=== PATIENT | male | born 1955 | race African-American/Black ===

== ENCOUNTER 2016-08-23 11:00 | Inpatient (IN) ==
[2016-08-23] MEDS ORDERED: SODIUM CHLORIDE 0.9% 1,000 ML IV STA (11:22)
[2016-08-23] MEDS ORDERED: ONDANSETRON 4 MG/2 ML VIAL IV STA (11:22)
[2016-08-23] MEDS ORDERED: ONDANSETRON 4 MG/2 ML VIAL ONE (11:30)
--- NOTE | 2016-08-23 11:35 | Emergency Department Note ---
Lyle Kim Brooke, am scribing for, and in the presence of, Prosper Persaud MD 11:25 . Cori Kim James D, MD, personally performed the services described in this documentation, ascribed by Kaykay Alvarenga in my presence, and it is both accurate and complete . Arrival - Arrival Chief Complaint: Weakness Stated Complaint: no eating or drinking 4-5 days,vomiting,speech ED Nursing Triage Note: Pt c/o neck/back pain, nausea, vomiting, weakness and not eating since last Mon. 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 Mode of Arrival: Ambulatory Limitations: No Limitations Source: Patient, Family (Sister in law), RN Notes Reviewed Time Seen by Provider: 08/23/16 11:16 - History of Present Illness HPI Narrative: Patient is a 61 year old male who presents to the ED with c/o not being able to eat. He says he has not had anything to eat since Monday. He denies having problems swallowing. He says he has never had problems eating in the past. Patient says his bowel movements are not regular. His last bowel movement was yesterday and he says it was "very little." Patient also says he is voiding "very little." He also complains of cough, nausea, vomiting, and shortness of breath. He says his cough is productive with white mucous. He denies any blood in his mucous or stool. Patient says he has lost a lot of weight. He says he thinks he has lost about 30 pounds. Patient has PMHx of HTN. He is a smoker and says he has been smoking, about a pack of cigarettes a day, for the past 30 years. Onset (ago): day(s) (6) Allergies/Adverse Reactions: Allergies Allergy/AdvReac Type Severity Reaction Status Date / Time No Known Allergies Allergy Verified 08/23/16 11:05 Home Medications: Home Medications Medication Instructions Recorded Confirmed Type Brimonidine Tartrate [Brimonidine 1 drop LEFT EYE BID 08/23/16 08/23/16 History 0.2% Oph Soln] Cyproheptadine Tab [Periactin Tab] 4 mg PO TID 08/23/16 08/23/16 History Difluprednate 0.05% Oph Emul 1 drop RIGHT EYE BID 08/23/16 08/23/16 History [Durezol] Dorzolamide HCl/Timolol Maleat 1 drop LEFT EYE BID 08/23/16 08/23/16 History [Dorzolamide/Timolol Oph Soln] Latanoprost [Latanoprost 0.005 % 1 drop BOTH EYES BEDTIME 08/23/16 08/23/16 History Oph Soln] Lisinopril 20 mg PO DAILY 08/23/16 08/23/16 History Meloxicam 15 mg PO DAILY 08/23/16 08/23/16 History Tramadol HCl [Tramadol Tab] 50 mg PO Q6H PRN 08/23/16 08/23/16 History amLODIPine [Norvasc] 5 mg PO DAILY 08/23/16 08/23/16 History Review of System - Review of System 12 point system: reviewed and no additional remarkable complaints except as stated - Review of System Constitutional: Present: weight loss (about 30 pounds), other (not eating). Absent: fever Respiratory: Present: cough (productive with white mucous). Absent: respiratory distress Gastrointestinal: Present: nausea, vomiting, constipation. Absent: hematochezia Skin: Absent: rash Medical,Surgical,& Family Hx - Medical History Cardio: History of: Hypertension - Surgical History Abdominal Surgeries: Surgical HX of: Hernia Repair - Social History Smoking Status: Current every day smoker Exam Vital Signs: Vital Signs Temperature 97.6 F 08/23/16 11:03 Respiratory Rate 20 08/23/16 11:03 Blood Pressure 70/43 08/23/16 11:03 GENERAL: This is a cachectic black male in no apparent distress. VITAL SIGNS: Reviewed HEENT: Head is atraumatic and normocephalic. Pupils are equal round react to light. Extraocular movements are intact. Oropharynx is benign with moist mucous membranes. NECK: Neck is soft and supple without tenderness. There are no masses. There is no lymphadenopathy. LUNGS: Lungs are clear to auscultation. Chest rises symmetrically. There is no chest wall tenderness. CV: Heart is regular rate and rhythm without murmurs rubs or gallops. ABDOMEN: Abdomen is soft, nontender to palpation. There are no abdominal abnormal masses palpated. There is no organomegaly. Bowel sounds are present and active. SKIN: Skin is warm and dry. No rash. EXTREMITIES: Patient has full range of motion without tenderness. There is no pedal edema. NEUROLOGIC: Awake, alert, oriented 4. Cranial nerves II through XII are grossly intact. Motor is 5 over 5 in all extremities bilaterally. Results - Labs CBC & BMP: 08/23/16 11:51 08/23/16 11:51 Lab Results: I have reviewed the patients labs Labs: Laboratory Tests 08/23/16 08/23/16 11:51 11:51 WBC 7.5 Hgb 14.8 Hct 40.1 L Plt Count 116 L Sodium 125 L Potassium 4.5 Chloride 82 L Carbon Dioxide 20 L Anion Gap 27.5 H BUN 97 H Creatinine 11.50 H Total Bilirubin 1.40 H AST 72 H - Diagnostic Findings Procedure: Chest x-ray: image reviewed by me (Hyperinflation bilaterally) Disposition Clinical Impression: Cachexia, Hyponatremia, Acute renal failure Case discussed with: patient Disposition: Still a Patient Condition: Stable Time of Disposition: 12:57
[2016-08-23 12:14] LABS: Basophils % 0.1 % (0.0-0.8); Eosinophils % 0.1 % (0.00-10.9); Hematocrit 40.1 VOL% (42.0-52.0); Hemoglobin 14.8 GM/DL (14.0-18.0); Immature Granulocytes % 0.4 %; Immature Granulocytes Absolute 0.03 #; Lymphocytes # 1.6 10*3/uL (1.4-4.0); Lymphocytes % 21.5 % (21.2-54.2); Mean Corpuscular HGB Conc 36.9 GM/DL (32-36); Mean Corpuscular Hemoglobin 34 PG (27-34); Mean Corpuscular Volume 91.6 FL (87-102); Mean Platelet Volume 10.5 FL (9.6-12.0); Monocytes # 0.9 10*3/uL (0.11-0.8); Monocytes % 11.9 % (1.7-12.7); Neutrophils # 4.9 10*3/uL (1.4-7.4); Platelet Count 116 T/CUMM (130-400); Red Blood Count 4.38 MC/CUMM (3.8-5.5); Red Cell Distribution Width 13.8 % (9.3-17.3); White Blood Count 7.5 T/CUMM (4-12)
--- NOTE | 2016-08-23 12:25 | XRay Report ---
Exam: XR chest 1V Date: 08/23/2016 11:22 AM Indication: Weight loss tobacco abuse cough Comparison: None Technical: AP view Findings: Mild dextroscoliotic curve at thoracolumbar junction. ASVD is present. No obvious infiltrate or effusion. Mediastinum is intact. The bony structures are otherwise unremarkable. Impression: 1. Mild dextroscoliosis thoracolumbar junction 2. ASVD 3. No acute cardiopulmonary pathology PROCEDURE INTERPRETED AT [facility] DEPARTMENT OF RADIOLOGY Final Report Signed by: Dr. Adrien Weiss
[2016-08-23 12:36] LABS: Albumin 3.5 G/DL (3.4-5.0); Bilirubin,Total 1.4 MG/DL (0.2-1.0); Calcium 9.2 MG/DL (8.5-10.1); Osmolality,Calculated 280.5 MOS/KG (273-304); Potassium 4.5 MMOL/L (3.5-5.1)
--- NOTE | 2016-08-23 12:46 | CT Report ---
Referring physician: Prosper Persaud Exam: CT brain without contrast Date: 08/23/2016 Comparison: 02/08/2008 Reason: Weakness, cachexia, weight loss, cigarette smoker Technique: Axial images of the head were obtained without the use of contrast. Total DLP was 997.90 mGy*cm. Findings: No hydrocephalus or midline shift is present. There is no evidence of an acute infarction, recent intracranial hemorrhage or abnormal mass effect. Progressive atrophy and cerebral hypodensities. The osseous structures appear intact. The mastoid air cells are clear. Minimal mucosal thickening in the left maxillary sinus with postoperative findings in the right glenoid. Impression: No acute intracranial abnormality is identified. Progressive atrophy/microvascular disease. Minimal left maxillary sinusitis. The CT exam was performed using one or more of the following dose reduction techniques: Automated exposure control and adjustment of the mA and/or kV according to patient size. PROCEDURE INTERPRETED AT [facility] DEPARTMENT OF RADIOLOGY Final Report Signed by: Dr. Pippa Baig
--- NOTE | 2016-08-23 12:53 | CT Report ---
Referring physician: Prosper Persaud EXAM: CT chest without contrast DATE: COMPARISON: 12/09/2011 REASON: Cachexia, weight loss, cigarette smoking TECHNIQUE: Axial images of the chest were obtained without the use of IV contrast. Coronal and sagittal reformatted images were also provided. Total DLP is 104.00 mGy*cm. FINDINGS: The heart is small and compressed by the over expanded lungs with arterial calcifications including coronary artery calcifications. Limited evaluation of the vasculature and nodes without contrast. No significant change in the size of the nodes in the chest. Dextroscoliosis of the lower thoracic spine with degenerative changes. Progressive paraseptal emphysema with chronic scarring at the lung apices. Minimal atelectasis. No mass or pleural effusion. IMPRESSION: Progressive bullous emphysema. Arterial calcifications including coronary artery calcifications. Dextroscoliosis of the lower thoracic spine with degenerative changes. The CT exam was performed using one or more of the following dose reduction techniques: Automated exposure control and adjustment of the mA and/or kV according to patient size. PROCEDURE INTERPRETED AT [facility] DEPARTMENT OF RADIOLOGY Final Report Signed by: Dr. Pippa Baig
--- NOTE | 2016-08-23 15:00 | Hospitalist History & Physical ---
Assessment and Plan (1) Hypochloremia Status: Acute Assessment and plan: Chloride 82 at the time of admission; this is likely secondary to volume depletion; will re-hydrate and recheck in AM. Current Visit: Yes (2) Nicotine addiction Status: Acute Assessment and plan: Reports daily smoking with no desire to stop; spoke in great detail the need to refrain from smoking. Patient acknowledges the need to stop; however is not interested. Nicotine patch offered. Current Visit: Yes (3) Hyponatremia Status: Acute Assessment and plan: Sodium noted at 125; we will correct. We will hydrate and recheck in AM. Current Visit: Yes (4) Alcohol abuse Status: Acute Assessment and plan: Patient reluctlantly reports the daily use of alcohol use; we will start withdrawal precautions and vitamin supplements. Current Visit: Yes History of Present Illness Chief complaint: weight loss/generalized weakness History of present illness: This is a very unfortunate 61 year old male that presented to the ED at [facility] for evaluation of a decrease in appetite and inability to eat since Monday. The patient has a very impressive history of hypertension, alcohol abuse, nicotine addition, and glaucoma. He reports the onset of this on last Monday along with changes in his bowel patterns. In addition, he reported an excessive productive cough, nausea, vomiting, and shortness of breath. He reports that he is a current 1 pack a day smoker for the last 30 years and reports an estimated weight loss of "about 30 pounds" over the past couple of months. Labs were obtained which showed hyponatremia with a sodium of 125, mild hepatic impairment with AST at 72 and total bilirubin at 1.40. He was noted to have renal impairment with his BUN at 97 and creatinine at 11.5. Chest radiograph suggested hyperinflation. CT head was essentially negative. After brief discussion with both Dr. Persaud and Dr. Garcia, the patient will be admitted to the hospitalist service for continuation of care. Home Medications Medication Instructions Recorded Confirmed Type Brimonidine Tartrate [Brimonidine 1 drop LEFT EYE BID 08/23/16 08/23/16 History 0.2% Oph Soln] Cyproheptadine Tab [Periactin Tab] 4 mg PO TID 08/23/16 08/23/16 History Difluprednate 0.05% Oph Emul 1 drop RIGHT EYE BID 08/23/16 08/23/16 History [Durezol] Dorzolamide HCl/Timolol Maleat 1 drop LEFT EYE BID 08/23/16 08/23/16 History [Dorzolamide/Timolol Oph Soln] Latanoprost [Latanoprost 0.005 % 1 drop BOTH EYES BEDTIME 08/23/16 08/23/16 History Oph Soln] Lisinopril 20 mg PO DAILY 08/23/16 08/23/16 History Meloxicam 15 mg PO DAILY 08/23/16 08/23/16 History Tramadol HCl [Tramadol Tab] 50 mg PO Q6H PRN 08/23/16 08/23/16 History amLODIPine [Norvasc] 5 mg PO DAILY 08/23/16 08/23/16 History Allergies Allergy/AdvReac Type Severity Reaction Status Date / Time No Known Allergies Allergy Verified 08/23/16 11:05 Medical,Surgical,& Family Hx - Medical History Cardio: History of: Hypertension - Surgical History Abdominal Surgeries: Surgical HX of: Hernia Repair - Social History Smoking Status: Current every day smoker Have you smoked in the last 12 months: Yes Time spent discussing smoking cessation with patient: more than 10 minutes Frequency of Alcohol Use: None Type of Drug Use: None Marital Status: Lives With:: Spouse Functional capacity: independent ambulation 12 point system: reviewed and no additional remarkable complaints except as stated Exam - Constitutional Vitals: Period Temp Pulse Resp BP Sys/Benites Pulse Ox Last 24 Hr 97.6 F 20 70/43 General appearance: normal weight, no acute distress - Head Head exam: Present: normal inspection, normocephalic, atraumatic - Eye Eye exam: Present: EOMI. Absent: conjunctival injection, nystagmus Pupils: Present: AMANUEL, normal accommodation - ENT ENT exam: Present: normal exam, normal external ear exam, normal oropharynx - Neck Neck exam: Present: normal inspection. Absent: lymphadenopathy, meningismus, tenderness, thyromegaly - Respiratory Respiratory exam: Present: clear to auscultation bilaterally. Absent: rales, rhonchi, stridor, wheezes - Cardiovascular Cardiovascular exam: Present: regular rate and rhythm. Absent: carotid bruit, diastolic murmur, gallop, JVD, rubs, systolic murmur - GI/Abdominal GI/Abdominal exam: Present: normal bowel sounds, soft - Extremities Exam Extremities exam: Present: normal inspection, normal capillary refill, full ROM , edema - Back Exam Back exam: Present: normal inspection - Neurological Exam Neurological exam: Present: alert, oriented X3, CN II-XII intact - Psychiatric Psychiatric exam: Present: flat affect - Skin Skin exam: Present: normal color, warm, dry Results - Labs CBC & BMP: 08/23/16 11:51 08/23/16 11:51 Lab Results: I have reviewed the past 24 hour labs Quality Measures - VTE Deep Vein Thrombosis/Pulmonary Embolism Present on Admission: No
[2016-08-23] MEDS ORDERED: cefTRIAXone 1,000 MG VIAL ONE (16:47)
[2016-08-23] MEDS ORDERED: KETOROLAC 30 MG/1 ML VIAL ONE (16:47)
[2016-08-23] MEDS ORDERED: ONDANSETRON 4 MG/2 ML VIAL IV PRN (18:05)
[2016-08-23] MEDS ORDERED: ACETAMINOPHEN 325 MG TABLET PO PRN (18:05)
[2016-08-23] MEDS ORDERED: traMADol 50 MG TABLET PO PRN (18:05)
--- NOTE | 2016-08-23 19:12 | Ultrasound Report ---
Renal ultrasound Indication: Renal failure Comparison: None available Findings: Kidneys are normal in size and echogenicity. No hydronephrosis or nephrolithiasis is seen. Small amount of right perinephric fluid is present. The right renal length is 10.9 cm. The left renal length is 9.4 cm. No free fluid or other abnormality is seen. Impression: Small amount of right perinephric fluid is present. No other evidence of abnormality demonstrated. Ultrasound images stored and captured. PROCEDURE INTERPRETED AT [facility] DEPARTMENT OF RADIOLOGY Final Report Signed by: Dr. Ezequiel Carrington
[2016-08-23] MEDS: SODIUM CHLORIDE 0.9% 1,000 ML IV SCH (19:27)
[2016-08-23] MEDS: LATANOPROST 0.005% OPH SOLN 2.5 ML BOTTLE BOTH EYES SCH (21:18)
[2016-08-23] MEDS: CYPROHEPTADINE 4 MG TABLET PO SCH (21:18)
[2016-08-23] MEDS: DORZOLAMIDE/TIMOLOL OPH SOLN 10 ML BOTTLE LEFT EYE SCH (21:18)
[2016-08-23] MEDS: BRIMONIDINE 0.2% OPH SOLN 5 ML BOTTLE LEFT EYE SCH (21:18)
[2016-08-23] MEDS: ENOXAPARIN 30 MG/0.3 ML SYRINGE SUBCUT SCH (21:18)
[2016-08-23] MEDS: DIFLUPREDNATE 0.05% OPH EMUL 5 ML BOTTLE RIGHT EYE SCH (21:18)
[2016-08-24] MEDS: SODIUM CHLORIDE 0.9% 1,000 ML IV SCH ×2 (02:42→12:50)
[2016-08-24 06:06] LABS: Apearance,Urine CLEAR (Clear); Bilirubin,Urine Negative (Negative); Blood, Urine Small mg/dL (Negative); Glucose,Urine (UA) Negative (Negative); Ketones,Urine 5 mg/dL (Negative); Nitrite,Urine Negative (Negative); Protein,Urine Negative; RBC,Urine 2 /HPF (0-4); Urine Color Yellow (Yellow); Urine Specific Gravity 1.011 (1.001-1.035); Urine Urobilinogen < 2.0 EU/DL (0.2-1.0); WBC,Urine 6 /HPF (0-6)
[2016-08-24 06:21] LABS: Basophils % 0.2 % (0.0-0.8); Eosinophils % 0.5 % (0.00-10.9); Hematocrit 34.3 VOL% (42.0-52.0); Immature Granulocytes % 0.2 %; Immature Granulocytes Absolute 0.01 #; Lymphocytes # 1.5 10*3/uL (1.4-4.0); Lymphocytes % 35.2 % (21.2-54.2); Mean Corpuscular Hemoglobin 35 PG (27-34); Mean Corpuscular Volume 93.2 FL (87-102); Mean Platelet Volume 10.3 FL (9.6-12.0); Monocytes # 0.7 10*3/uL (0.11-0.8); Monocytes % 14.9 % (1.7-12.7); Neutrophils # 2.1 10*3/uL (1.4-7.4); Platelet Count 130 T/CUMM (130-400); Red Blood Count 3.68 MC/CUMM (3.8-5.5); Red Cell Distribution Width 13.8 % (9.3-17.3)
[2016-08-24 06:23] LABS: Hemoglobin 12.7 GM/DL (14.0-18.0); White Blood Count 4.4 T/CUMM (4-12)
[2016-08-24 06:32] LABS: Calcium 8.5 MG/DL (8.5-10.1); Osmolality,Calculated 294.2 MOS/KG (273-304); Potassium 4.1 MMOL/L (3.5-5.1)
[2016-08-24 06:40] LABS: Carcinoembryonic Antigen 0.7 NG/ML (0.0-5.0)
[2016-08-24] MEDS ORDERED: amLODIPine 5 MG TABLET PO SCH (09:00)
[2016-08-24] MEDS: DIFLUPREDNATE 0.05% OPH EMUL 5 ML BOTTLE RIGHT EYE SCH ×2 (09:37→21:11)
[2016-08-24] MEDS: CYPROHEPTADINE 4 MG TABLET PO SCH ×3 (09:37→21:07)
[2016-08-24] MEDS: DORZOLAMIDE/TIMOLOL OPH SOLN 10 ML BOTTLE LEFT EYE SCH ×2 (09:37→21:11)
[2016-08-24] MEDS: BRIMONIDINE 0.2% OPH SOLN 5 ML BOTTLE LEFT EYE SCH ×2 (09:37→21:11)
[2016-08-24] MEDS: PANTOPRAZOLE 40 MG TABLET PO SCH (09:37)
--- NOTE | 2016-08-24 11:17 | Hospitalist Progress Note ---
Assessment and Plan (1) Cachexia Status: Acute Assessment and plan: The patient is admitted to the hospital with weight loss and acute renal failure. The renal failure appears to be multifactorial. The patient has apparent benign prostatic hypertrophy with lower tract obstructive symptoms. Renae catheter has been placed for drainage and creatinine has improved from 12- 6 overnight. The patient has been taking high dose meloxicam for at least a year. This has been discontinued. The patient has been taking Prinivil for hypertension and this has been discontinued. We will recheck renal function tomorrow and continue hydration with normal saline. The patient had CT scan consistent with emphysema due to tobacco abuse but there is no evidence of tumor seen. The patient does have abnormal phonation quality to his voice. I am going to consult Dr. Agee and request upper airway inspection. The patient has history of daily cigarette smoking and alcohol consumption which puts him at elevated risk of upper airway tumor. Of note, the CEA, CA 125, and PSA are within normal limits. Current Visit: Yes (2) BPH loc w urin obs/LUTS Status: Acute Current Visit: Yes (3) Acute renal failure Status: Acute Current Visit: Yes (4) Nicotine addiction Status: Acute Current Visit: Yes (5) Alcohol abuse Status: Acute Current Visit: Yes Hospitalist: Subjective Interval history: The patient looks stronger today. He has been rehydrated overnight. The patient states that he has had difficulty urinating and small urinary volumes for about a year. This is consistent with prostatism. The patient has no tremulousness or evidence of alcohol withdrawal syndrome at present. The patient does not complain of cough or dyspnea. Exam - Constitutional Vitals: Period Temp Pulse Resp BP Sys/Benites Pulse Ox Last 24 Hr 97.5 F-98.2 F 73-95 18-20 70-122/42-67 96-100 Exam: Constitutional System: No distress. The patient has obvious protein calorie malnutrition which is moderate to severe. No tremulousness. Head: Normocephalic, atraumatic. There is bitemporal wasting Ears, Nose and Throat System: No evidence of Otitis or Mastoiditis. No epistaxis or discharge Eyes System: Pupils equal, round, and reactive. Extraocular muscles intact. Neck: Supple, without adenopathy, No jugular venous distention. No thyromegaly , neck mass, or prior surgery apparent. Respiratory System: Chest clear to auscultation. The patient has some hyper expansion of the chest. The voice has abnormal phonation Cardiovascular System: Heart with regular rate and rhythm. No murmur. GI System: Abdomen soft, nontender. Normo active bowel sounds present. Musculoskeletal System: limbs with no pedal edema. Full distal pulses. There is muscular wasting Neurological System: No discernable sensory deficit. No aphasia Psychiatric System: Conversation is rational Results - Labs CBC & BMP: 08/24/16 05:38 08/24/16 05:38 Lab Results: I have reviewed the past 24 hour labs Quality Measures - VTE Deep Vein Thrombosis/Pulmonary Embolism Present on Admission: No
--- NOTE | 2016-08-24 13:13 | Nephrology Consult Note ---
History of Present Illness Chief complaint: Increased BUN and creatinine History of present illness: Mr. Salvador is a 61 year old male who is admitted yesterday for feeling weak. The patient states for the past 3 weeks or so he is not been eating well. He states he has been drinking a lot of alcohol. The patient drinks about 1/2 gallon of red wine every day. The patient has also noticed some decreased urine output during this three-week period. The patient also complained of some back pain. He has also had some knee pain and recently saw a bone doctor and was started on some pain medication for this. Based on his outpatient medications this medicine may have been meloxicam. The patient also states he restarted taking Advil recently. The patient also takes lisinopril for his blood pressure medication. He states he has been taking this on a daily basis since he has been sick. On admission the patient's creatinine was noted to be 11 mg/dL. The patient's creatinine within 24 hours has improved to 6 mg/dL. The patient had a Renae catheter placed this morning looks like he had about 325 cc of urine output with this placement. Prior to this the patient had had about 400 cc of urine output spontaneously on admission. The patient's creatinine in 2014 was noted to be normal at 0.8 mg/dL. ROS: Head -positive headaches ENT -positive sore throat Lymphatics - denies lymphadenopathy Hematology - denies bleeding problems Heart - denies chest pain Lungs - denies shortness of breath Abdomen - denies abdominal pain Musculoskeletal -positive arthritis Skin - denies rash Neurology - denies stroke, he states he has had a seizure before General -positive fever PE: General: in no acute distress, chronically ill-appearing with some muscle wasting Eyes: Pupils are round and reactive, conjunctivae are clear ENT: Nose is clear, O/P is benign Neck: Supple, no thyromegaly Lymphatics: No cervical, supraclavicular or axillary adenopathy Heart: Regular rate and rhythm, no edema Lungs: Clear to auscultation anteriorly, chest expansion symmetric Abdomen: Soft, normoactive bowel sounds, no hepatomegaly Musculoskeletal: No joint erythema or effusions or joint asymmetry Skin: Normal turgor, normal hydration, no rash Neuro/Psych: Alert and cooperative with poor insight Home Medications Medication Instructions Recorded Confirmed Type Brimonidine Tartrate [Brimonidine 1 drop LEFT EYE BID 08/23/16 08/23/16 History 0.2% Oph Soln] Cyproheptadine Tab [Periactin Tab] 4 mg PO TID 08/23/16 08/23/16 History Difluprednate 0.05% Oph Emul 1 drop RIGHT EYE BID 08/23/16 08/23/16 History [Durezol] Dorzolamide HCl/Timolol Maleat 1 drop LEFT EYE BID 08/23/16 08/23/16 History [Dorzolamide/Timolol Oph Soln] Latanoprost [Latanoprost 0.005 % 1 drop BOTH EYES BEDTIME 08/23/16 08/23/16 History Oph Soln] Lisinopril 20 mg PO DAILY 08/23/16 08/23/16 History Meloxicam 15 mg PO DAILY 08/23/16 08/23/16 History Tramadol HCl [Tramadol Tab] 50 mg PO Q6H PRN 08/23/16 08/23/16 History amLODIPine [Norvasc] 5 mg PO DAILY 08/23/16 08/23/16 History Allergies Allergy/AdvReac Type Severity Reaction Status Date / Time No Known Allergies Allergy Verified 08/23/16 11:05 Medical,Surgical,& Family Hx - Medical History Cardio: History of: Hypertension - Surgical History Abdominal Surgeries: Surgical HX of: Hernia Repair - Family History Family History: Reports;: Family Hypertension - Social History Smoking Status: Current every day smoker Frequency of Alcohol Use: Frequently (Drinks half a gallon of red wine on a daily basis) Type of Drug Use: None Exam - Vital Signs Vital signs: Period Temp Pulse Resp BP Sys/Benites Pulse Ox Last 24 Hr 97.5 F-98.2 F 73-95 18-20 70-122/42-67 96-100 Results - Labs CBC & BMP: 08/24/16 05:38 08/24/16 05:38 Assessment and Plan (1) Acute renal failure Status: Acute Assessment and plan: This patient had a normal creatinine about 2 years ago he presented with a creatinine of 11 mg/dL, it improved to 6 mg/dL with IV fluid hydration, the patient apparently had not been eating very well and drinking on a daily basis, in addition the patient was on an BENJIE inhibitor and also taking nonsteroidal anti-inflammatory medication on a daily basis. I suspect he has some prerenal injury as well as some acute tubular necrosis injury. We will continue IV fluids and monitor for improvement. It would seem most of his improvement from yesterday was prior to his Renae catheter placement however he did have a fair amount of urine returned at 300 cc with his Renae catheterization. His renal ultrasound was unremarkable Current Visit: Yes (2) Alcohol abuse Status: Acute Current Visit: Yes (3) Cachexia Status: Acute Current Visit: Yes (4) Hyponatremia Status: Acute Assessment and plan: This is correcting at an acceptable rate will continue the normal saline Current Visit: Yes (5) Nicotine addiction Status: Acute Current Visit: Yes (6) Anemia Status: Acute Assessment and plan: This is mild his hematocrit is 34% today Current Visit: Yes (7) Hypertension Status: Acute Assessment and plan: Patient's blood pressure is controlled off of antihypertensives presently Current Visit: Yes
[2016-08-24] MEDS ORDERED: THIAMINE IV SCH (15:00)
[2016-08-24] MEDS ORDERED: NACL 0.9% IV SCH (15:00)
[2016-08-24] MEDS ORDERED: DEXTROSE IV SCH (15:00)
[2016-08-24] MEDS ORDERED: MULTIVITAMIN IV SCH (15:00)
--- NOTE | 2016-08-24 15:27 | Consultation ---
Assessment and Plan - Time spent with patient Time spent with patient: Less than 30 minutes Time spent discussing smoking cessation with patient: 3 to 10 minutes (1) Dysphasia Status: Acute Assessment and plan: I see no discernible mass or lesion that would explain the underlying etiology of his weight loss I do recommend he follow-up with me as an outpatient after discharge for evaluation in the office. I did discuss with him that he needs to quit smoking additionally he needs to see dental because his poor oral hygiene is not helping his ability to eat and swallow. Additionally speech therapy for swallow evaluation and possible swallow therapy may be of benefit. Thank you very much for this consult I will see the patient in follow-up as an outpatient Current Visit: Yes (2) Dysphonia Status: Acute Current Visit: Yes (3) Dental caries Status: Acute Current Visit: Yes (4) Poor oral hygiene Status: Acute Current Visit: Yes (5) Cachexia Status: Acute Current Visit: Yes (6) Nicotine addiction Status: Acute Current Visit: Yes History of Present Illness - Data of Consult Patient: new to practice Consult date: 08/24/16 Requesting Physician: Babatunde Garcia - Consult Narrative Reason for consult: Weight loss with muffled speech History of present illness: Mr. Salvador is a 61 year old male with muffled speech and weight loss of undetermined origin ENT is consulted to evaluate for head and neck pathology which may explain the patient's weight loss. Additionally in discussion the patient does note some mild dysphasia and some decrease in oral intake because of the dysphagia. CC: Babatunde Garcia MD - Home Medications and Allergies Home Medications: Home Medications Medication Instructions Recorded Confirmed Type Brimonidine Tartrate [Brimonidine 1 drop LEFT EYE BID 08/23/16 08/23/16 History 0.2% Oph Soln] Cyproheptadine Tab [Periactin Tab] 4 mg PO TID 08/23/16 08/23/16 History Difluprednate 0.05% Oph Emul 1 drop RIGHT EYE BID 08/23/16 08/23/16 History [Durezol] Dorzolamide HCl/Timolol Maleat 1 drop LEFT EYE BID 08/23/16 08/23/16 History [Dorzolamide/Timolol Oph Soln] Latanoprost [Latanoprost 0.005 % 1 drop BOTH EYES BEDTIME 08/23/16 08/23/16 History Oph Soln] Lisinopril 20 mg PO DAILY 08/23/16 08/23/16 History Meloxicam 15 mg PO DAILY 08/23/16 08/23/16 History Tramadol HCl [Tramadol Tab] 50 mg PO Q6H PRN 08/23/16 08/23/16 History amLODIPine [Norvasc] 5 mg PO DAILY 08/23/16 08/23/16 History Allergies/Adverse Reactions: Allergies Allergy/AdvReac Type Severity Reaction Status Date / Time No Known Allergies Allergy Verified 08/23/16 11:05 12 point system: reviewed and no additional remarkable complaints except as stated Medical,Surgical,& Family Hx - Medical History Cardio: History of: Hypertension - Surgical History Abdominal Surgeries: Surgical HX of: Hernia Repair - Family History Family History: Reports;: Family Hypertension - Social History Smoking Status: Current every day smoker Frequency of Alcohol Use: Frequently (Drinks half a gallon of red wine on a daily basis) Type of Drug Use: None Exam - Constitutional Vitals: Period Temp Pulse Resp BP Sys/Benites Pulse Ox Last 24 Hr 97.5 F-98.2 F 73-95 18-20 70-122/42-67 96-100 General appearance: no acute distress, cachectic - Head Head exam: Present: normal inspection, normocephalic - Eye Eye exam: Present: EOMI Pupils: Present: AMANUEL - ENT ENT exam: Present: normal exam, normal external ear exam, other (Markedly poor dentition with normal Lexi of the mandible and palate no gross masses lesions were friable areas. Bedside laryngoscopy reveals diffuse erythema consistent with his history of smoking no gross masses or lesions of the supraglottis or glottis he does have remarkable lymph hypertrophy consistent with lingual tonsil irritation secondary to years of tobacco use I do not see any distinct mass or lesion) - Expanded ENT Exam Ear exam: Present: TM's normal bilaterally Mouth exam: Present: moist Teeth exam: Present: dental caries Throat exam: Present: normal inspection - Neck Neck exam: Present: normal inspection - Respiratory Respiratory exam: Present: other (No tachypnea or shortness of breath) - GI/Abdominal GI/Abdominal exam: Present: soft (Cachectic) - Extremities Exam Extremities exam: Present: normal inspection, normal capillary refill - Neurological Exam Neurological exam: Present: alert, oriented X3, CN II-XII intact - Psychiatric Psychiatric exam: Present: normal affect, normal mood - Skin Skin exam: Present: normal color, warm Results - Labs CBC & BMP: 08/24/16 05:38 08/24/16 05:38 Lab Results: I have reviewed the past 24 hour labs Quality Measures - VTE Deep Vein Thrombosis/Pulmonary Embolism Present on Admission: No
[2016-08-24] MEDS: MULTIVITAMIN IV SCH (16:22)
[2016-08-24] MEDS: THIAMINE IV SCH (16:22)
[2016-08-24] MEDS: [UNRECOGNIZED DRUG - OTHER] IV SCH (16:22)
[2016-08-24] MEDS: NICOTINE 7 MG/24 HR PATCH TRANSDERM SCH (16:22)
[2016-08-24] MEDS: ENOXAPARIN 30 MG/0.3 ML SYRINGE SUBCUT SCH (21:06)
[2016-08-24] MEDS: LATANOPROST 0.005% OPH SOLN 2.5 ML BOTTLE BOTH EYES SCH (21:56)
[2016-08-25] MEDS ORDERED: DEXTROSE 5% NACL 0.9% 250 ML IV SCH (00:40)
[2016-08-25] MEDS: [UNRECOGNIZED DRUG - OTHER] IV SCH ×4 (00:42→23:50)
[2016-08-25] MEDS: MULTIVITAMIN IV SCH ×4 (00:42→23:50)
[2016-08-25] MEDS: THIAMINE IV SCH ×4 (00:42→23:50)
[2016-08-25 05:10] LABS: Basophils % 0.5 % (0.0-0.8); Eosinophils # 0.1 10*3/uL (0.0-0.87); Eosinophils % 1.2 % (0.00-10.9); Hematocrit 33.3 VOL% (42.0-52.0); Hemoglobin 11.8 GM/DL (14.0-18.0); Immature Granulocytes % 0.2 %; Immature Granulocytes Absolute 0.01 #; Lymphocytes # 1.8 10*3/uL (1.4-4.0); Lymphocytes % 41.3 % (21.2-54.2); Mean Corpuscular HGB Conc 35.4 GM/DL (32-36); Mean Corpuscular Hemoglobin 34 PG (27-34); Mean Corpuscular Volume 94.6 FL (87-102); Mean Platelet Volume 10.3 FL (9.6-12.0); Monocytes # 0.6 10*3/uL (0.11-0.8); Monocytes % 14.5 % (1.7-12.7); Neutrophils # 1.8 10*3/uL (1.4-7.4); Neutrophils % 42.3 % (38.7-73.9); Platelet Count 139 T/CUMM (130-400); Red Blood Count 3.52 MC/CUMM (3.8-5.5); Red Cell Distribution Width 14.3 % (9.3-17.3); White Blood Count 4.3 T/CUMM (4-12)
[2016-08-25 05:39] LABS: Albumin 2.7 G/DL (3.4-5.0); Bilirubin,Total 1.3 MG/DL (0.2-1.0); Calcium 8.5 MG/DL (8.5-10.1); Magnesium 1.3 MG/DL (1.8-2.4); Osmolality,Calculated 294.1 MOS/KG (273-304); Potassium 3.4 MMOL/L (3.5-5.1); Total Protein 5.6 G/DL (6.4-8.3)
[2016-08-25] MEDS: POTASSIUM CHLORIDE 20 MEQ TABLET PO SCH ×3 (08:26→15:42)
[2016-08-25] MEDS: DORZOLAMIDE/TIMOLOL OPH SOLN 10 ML BOTTLE LEFT EYE SCH ×2 (08:26→12:41)
[2016-08-25] MEDS: DIFLUPREDNATE 0.05% OPH EMUL 5 ML BOTTLE RIGHT EYE SCH ×2 (08:26→21:02)
[2016-08-25] MEDS: PANTOPRAZOLE 40 MG TABLET PO SCH (08:26)
[2016-08-25] MEDS: CYPROHEPTADINE 4 MG TABLET PO SCH ×3 (08:26→20:42)
[2016-08-25] MEDS: BRIMONIDINE 0.2% OPH SOLN 5 ML BOTTLE LEFT EYE SCH ×2 (08:26→21:01)
[2016-08-25] MEDS: NICOTINE 7 MG/24 HR PATCH TRANSDERM SCH (08:26)
[2016-08-25] MEDS ORDERED: TAMSULOSIN 0.4 MG CAPSULE PO SCH (09:00)
--- NOTE | 2016-08-25 10:31 | Hospitalist Progress Note ---
Assessment and Plan (1) Cachexia Status: Chronic Assessment and plan: The patient is admitted to the hospital with weight loss and acute renal failure. The renal failure appears to be multifactorial. The patient has apparent benign prostatic hypertrophy with lower tract obstructive symptoms. Renae catheter has been placed for drainage and creatinine has improved from 12 down to 1 over the last 2 days. The patient has been taking high dose meloxicam for at least a year. This has been discontinued. The patient has been taking Prinivil for hypertension and this has been discontinued. We will recheck renal function tomorrow and remove Renae catheter now. The patient had CT scan consistent with emphysema due to tobacco abuse but there is no evidence of tumor seen. The patient does have muffled quality to his voice. I consulted Dr. Agee and he inspected the upper airways with laryngoscope at the bedside and found no tumor. Dr. monet wishes to do further follow-up in the office. I discussed with the patient and his the need for follow-up with Dr. Beltran and consideration of colonoscopy. Current Visit: Yes (2) BPH loc w urin obs/LUTS Status: Chronic Current Visit: Yes (3) Acute renal failure Status: Resolved Current Visit: Yes (4) Nicotine addiction Status: Acute Current Visit: Yes (5) Alcohol abuse Status: Acute Current Visit: Yes Hospitalist: Subjective Interval history: Mr. Salvador feels well this morning. Appetite is improving. The patient had some relative hypotension last night and is likely due to postobstructive diuresis as he has improved kidney function. The patient has no shortness of breath or chest discomfort. Patient denies rectal bleeding. I reviewed plan of care with patient as well as his at the bedside. I anticipate discharge home tomorrow with follow-up by Dr. Beltran. Exam - Constitutional Vitals: Period Temp Pulse Resp BP Sys/Benites Pulse Ox Last 24 Hr 97.4 F-98.3 F 73-89 16-20 80-106/42-69 93-100 Exam: Constitutional System: No distress. The patient has obvious protein calorie malnutrition which is moderate to severe. No tremulousness. Head: Normocephalic, atraumatic. There is bitemporal wasting Ears, Nose and Throat System: No evidence of Otitis or Mastoiditis. No epistaxis or discharge Eyes System: Pupils equal, round, and reactive. Extraocular muscles intact. Neck: Supple, without adenopathy, No jugular venous distention. No thyromegaly , neck mass, or prior surgery apparent. Respiratory System: Chest clear to auscultation. The patient has some hyper expansion of the chest. The voice has abnormal phonation Cardiovascular System: Heart with regular rate and rhythm. No murmur. GI System: Abdomen soft, nontender. Normo active bowel sounds present. Musculoskeletal System: limbs with no pedal edema. Full distal pulses. There is muscular wasting Neurological System: No discernable sensory deficit. No aphasia Psychiatric System: Conversation is rational - Expanded ENT Exam Mouth exam: Present: moist Teeth exam: Present: dental caries Throat exam: Present: normal inspection Results - Labs CBC & BMP: 08/25/16 04:48 08/25/16 04:48 Lab Results: I have reviewed the past 24 hour labs Quality Measures - VTE Deep Vein Thrombosis/Pulmonary Embolism Present on Admission: No
--- NOTE | 2016-08-25 10:34 | Discharge Summary ---
Hospital Course - Hospital Course Hospital Course: The patient is admitted to the hospital with weight loss and acute renal failure. The renal failure appears to be multifactorial. The patient has apparent benign prostatic hypertrophy with lower tract obstructive symptoms. Renae catheter has been placed for drainage and creatinine has improved from 12 down to 1 over the last 2 days. The patient has been taking high dose meloxicam for at least a year. This has been discontinued. The patient has been taking Prinivil for hypertension and this has been discontinued. We will recheck renal function tomorrow and remove Renae catheter now. The patient had CT scan consistent with emphysema due to tobacco abuse but there is no evidence of tumor seen. The patient does have muffled quality to his voice. I consulted Dr. Agee and he inspected the upper airways with laryngoscope at the bedside and found no tumor. Dr. monet wishes to do further follow-up in the office. I discussed with the patient and his the need for follow-up with Dr. Beltran and consideration of colonoscopy. The patient was examined on the date of discharge the chest is clear and heart has regular rate and rhythm. Total time of discharge documentation and examination and patient instructions is 32 minutes. - Time spent with patient Time with patient DS: Greater than 30 minutes Diagnosis - Discharge Diagnosis (1) Cachexia Status: Chronic (2) BPH loc w urin obs/LUTS Status: Chronic (3) Acute renal failure Status: Resolved (4) Nicotine addiction Status: Acute (5) Alcohol abuse Status: Acute Specialty Discharge - Follow Up or Referrals Follow up with: Zach Agee DO [Physician] - 1 Month Hao Beltran DO [Physician] - 2 Weeks Discharge Plan - Discharge Data Disposition: Disch To Home/Self Care Condition at Discharge: Stable Discharge Diet: advance to your usual diet Activity: resume usual activities as tolerated - Discharge Medications New HYDROcodone/ACETAMIN 5-325 [Mission 5-325] 1 tablet PO Q8HR #30 tablet Tamsulosin [Flomax] 0.2 mg PO DAILY #60 capsule Continue Dorzolamide HCl/Timolol Maleat [Dorzolamide/Timolol Oph Soln] 1 drop LEFT EYE BID Brimonidine Tartrate [Brimonidine 0.2% Oph Soln] 1 drop LEFT EYE BID Tramadol HCl [Tramadol Tab] 50 mg PO Q6H PRN PRN Reason: Pain Latanoprost [Latanoprost 0.005 % Oph Soln] 1 drop BOTH EYES BEDTIME Difluprednate 0.05% Oph Emul [Durezol] 1 drop RIGHT EYE BID Cyproheptadine Tab [Periactin Tab] 4 mg PO TID Discontinued amLODIPine [Norvasc] 5 mg PO DAILY Lisinopril 20 mg PO DAILY Meloxicam 15 mg PO DAILY - Follow Up or Referral Follow Up: Zach Agee DO [Physician] - 1 Month Hao Beltran DO [Physician] - 2 Weeks - Forms/Instructions Exam - Constitutional Vitals: Period Temp Pulse Resp BP Sys/Benites Pulse Ox Last 24 Hr 97.4 F-98.3 F 73-89 16-20 80-106/42-69 93-100 Discharge Results Procedures and tests throughout hospitalization: Pending Orders 08/23/16 19:47 CA 125 [Cancer Antigen 125] Routine 08/24/16 Urine Culture Routine 08/26/16 04:00 Basic Metabolic Panel w/Mg IN AM Labs on day of discharge: Labs from last 24 hours 08/25/16 08/25/16 04:48 04:48 WBC 4.3 RBC 3.52 L Hgb 11.8 L Hct 33.3 L MCV 94.6 MCH 34 MCHC 35.4 RDW 14.3 Plt Count 139 MPV 10.3 Neut % (Auto) 42.3 Lymph % (Auto) 41.3 Chase % (Auto) 14.5 H Eos % (Auto) 1.2 Baso % (Auto) 0.5 Neut # (Auto) 1.8 Lymph # (Auto) 1.8 Chase # (Auto) 0.6 Eos # (Auto) 0.1 Baso # (Auto) 0.0 Immature Gran % 0.2 Nucleated RBC % 0.0 Immature Gran # 0.01 Nucleated RBCs # 0.00 Sodium 142 Potassium 3.4 L Chloride 106 Carbon Dioxide 27 Anion Gap 12.4 BUN 43 H D Creatinine 0.90 GFR Calculation 99 BUN/Creatinine Ratio 47.00 H Glucose 122 H Calculated Osmolality 294.1 Calcium 8.5 Magnesium 1.3 L Total Bilirubin 1.30 H AST 60 H ALT 42 Alkaline Phosphatase 52 Total Protein 5.6 L Albumin 2.7 L Globulin 2.9 Albumin/Globulin Ratio 0.9 L DS: Provider Date of admission: 08/23/16 14:52 Primary care physician: . No PCP Attending physician on admission: Babatunde Garcia MD Consults: 08/23/16 18:05 Consult to Physician [CONS] Routine Comment: renal failure Consulting Provider: Shai Talley Person Notified: MICKI Date Notified: 08/24/16 Time Notified: 12:05 08/23/16 19:21 Consult to Dietitian [CONS] Routine Reason for Dietitian: Other Consult Comment: wt loss 08/24/16 11:21 Consult to Physician [CONS] Routine Comment: weight loss, abnormal voice Consulting Provider: Zach Agee Person Notified: md nj Date Notified: 08/24/16 Time Notified: 12:59 Consult Notification Comment: 08/24/16 14:48 Consult to Case Mgmt/Social Srvs [CONS] Routine Reason for Case Mgmt/Social Srvs: Equipment Consult Comment: rollator 08/24/16 15:32 Consult to Speech Therapy [CONS] Routine Reason for Speech Therapy: Swallowing Impairment Discharging clinician: Babatunde Garcia MD
--- NOTE | 2016-08-25 12:24 | Physician Query Form ---
CLICK EDIT DOCUMENT TO SELECT QUERY ANSWER --> OK --> SIGN Harper Juan RN Clinical Veterinary Laboratory Technician W) [phone] (f) [phone] [email or web address] PROVIDERS: Make your selection(s) from the choices in EACH section by typing an "x" and enter comments in the comment section. Please use your independent medical judgment in providing your response. This request does not imply that any particular answer is desired or expected. 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 " "Cachexia" Based on the above, which following choice most accurately represents the patient's nutritional status? ( ) Malnutrition ( ) mild ( ) moderate ( ) severe ( X) Protein calorie malnutrition ( ) mild ( ) moderate ( X) severe ( ) Emaciation due to malnutrition ( ) Nutritional marasmus ( ) Underweight ( ) No nutritional deficiency ( ) Other, please specify: ( ) Clinically unable to determine Mild Malnutrition (BMI < 18.5, % Normal Body Weight 85-95%) Moderate Malnutrition (BMI < 17, % Normal Body Weight 75-85%) Severe Malnutrition (BMI < 16, % Normal Body Weight < 75%) Source: Jody COMMENTS: PLEASE ALSO DOCUMENT RESPONSE IN PROGRESS NOTES AND/OR DISCHARGE SUMMARY Use of terms such as suspected, likely, or probable (associated with a specific diagnosis that is being evaluated, monitored, or treated as if it exists) are acceptable and can be restated in the discharge summary if not ruled out. MTDD
[2016-08-25] MEDS: TAMSULOSIN 0.4 MG CAPSULE PO SCH (12:41)
--- NOTE | 2016-08-25 12:51 | Nephrology Progress Note ---
Nephrology - PN: Subj Interval history: Patient is feeling better. His appetite is improved. Review of systems pulmonary denies shortness of breath Physical exam general the patient chronically ill-appearing, he has no pitting edema Assessment/plan 1. Acute renal failure-this patient's creatinine has decreased to 1 mg/dL from 11 mg/dL a few days ago, I think his renal insufficiency was related to prerenal problem with volume depletion and medication. 2. Alcohol abuse-spoke to the patient about trying to get some help for this 3. Hyponatremia this is resolved I will sign off the patient's case please reconsult as needed thank you. Exam (PN)-Nephrology - Vital Signs Vital signs: Period Temp Pulse Resp BP Sys/Benites Pulse Ox Last 24 Hr 97.4 F-98.3 F 73-90 16-20 80-108/42-69 93-100 - Lab 08/25/16 04:48 08/25/16 04:48 Most recent lab results Calcium 8.5 MG/DL (8.5-10.1) 08/25/16 04:48 Phosphorus 5.3 MG/DL (2.5-4.9) H 08/23/16 19:47 Magnesium 1.3 MG/DL (1.8-2.4) L 08/25/16 04:48 Assessment and Plan (1) Acute renal failure Status: Resolved Assessment and plan: This patient had a normal creatinine about 2 years ago he presented with a creatinine of 11 mg/dL, it improved to 6 mg/dL with IV fluid hydration, the patient apparently had not been eating very well and drinking on a daily basis, in addition the patient was on an BENJIE inhibitor and also taking nonsteroidal anti-inflammatory medication on a daily basis. I suspect he has some prerenal injury as well as some acute tubular necrosis injury. We will continue IV fluids and monitor for improvement. It would seem most of his improvement from yesterday was prior to his Renae catheter placement however he did have a fair amount of urine returned at 300 cc with his Renae catheterization. His renal ultrasound was unremarkable Current Visit: Yes (2) Alcohol abuse Status: Acute Current Visit: Yes (3) Cachexia Status: Chronic Current Visit: Yes (4) Hyponatremia Status: Acute Assessment and plan: This is correcting at an acceptable rate will continue the normal saline Current Visit: Yes (5) Nicotine addiction Status: Acute Current Visit: Yes (6) Anemia Status: Acute Assessment and plan: This is mild his hematocrit is 34% today Current Visit: Yes (7) Hypertension Status: Acute Assessment and plan: Patient's blood pressure is controlled off of antihypertensives presently Current Visit: Yes Specialty Discharge - Follow Up or Referrals Follow up with: Zach Agee DO [Physician] - 1 Month Hao Beltran DO [Physician] - 2 Weeks
[2016-08-25] MEDS: ENOXAPARIN 30 MG/0.3 ML SYRINGE SUBCUT SCH (20:41)
[2016-08-25] MEDS: LATANOPROST 0.005% OPH SOLN 2.5 ML BOTTLE BOTH EYES SCH (20:41)
[2016-08-26 07:14] VITALS: BP 116/77
[2016-08-26] MEDS: [UNRECOGNIZED DRUG - OTHER] IV SCH (07:15)
[2016-08-26] MEDS: THIAMINE IV SCH (07:15)
[2016-08-26] MEDS: MULTIVITAMIN IV SCH (07:15)
[2016-08-26 07:57] LABS: Magnesium 0.7 MG/DL (1.8-2.4); Osmolality,Calculated 287.7 MOS/KG (273-304); Potassium 3.7 MMOL/L (3.5-5.1)
[2016-08-26] MEDS: CYPROHEPTADINE 4 MG TABLET PO SCH (08:17)
[2016-08-26] MEDS: PANTOPRAZOLE 40 MG TABLET PO SCH (08:17)
[2016-08-26] MEDS: TAMSULOSIN 0.4 MG CAPSULE PO SCH (08:17)
[2016-08-26] MEDS: NICOTINE 7 MG/24 HR PATCH TRANSDERM SCH (08:18)
[2016-08-26] MEDS: BRIMONIDINE 0.2% OPH SOLN 5 ML BOTTLE LEFT EYE SCH (08:18)
[2016-08-26] MEDS: DIFLUPREDNATE 0.05% OPH EMUL 5 ML BOTTLE RIGHT EYE SCH (08:18)
[2016-08-26] MEDS: DORZOLAMIDE/TIMOLOL OPH SOLN 10 ML BOTTLE LEFT EYE SCH (08:18)
== END 2016-08-26 10:55 | disposition home or self-care (01) | DRG 682 ==
LOC: N.ED 11:00 → N.EDINP 14:52 → N.5E 18:05
PROVIDERS: ADMIT Internal Medicine; ATTEND Internal Medicine